=== PATIENT | female | born 1990 | race Caucasian/White ===

== ENCOUNTER 2016-10-15 09:39 | Outpatient (CLI) | payer MEDICAID ==
[~2016-10-15] VITALS: Ht 152.4 cm; Wt 68.2 kg
[2016-10-15 09:45] VITALS: Ht 152.4 cm; Wt 68.2 kg
--- NOTE | 2016-10-15 10:40 | RADRPT ---
PROCEDURE: US OB biophysical profile. CLINICAL INDICATION: evaluation TECHNIQUE: Multiple sonographic images of the pelvis were obtained. The images were reviewed on a PACS workstation. COMPARISON: No prior studies are available for comparison. FINDINGS: There is a single viable intrauterine gestation. Cardiac activity is present with 148 beats per min jessi. There is a vertex presentation. The placenta is anterior. There is no evidence of placental abruption. There is a normal amount of amniotic fluid with an ALEC = 14.7 cm. Biophysical profile: movement 2/2 tone 2/2. breathing 2/2 ALEC 2/2 Total 01/21 RPTAT: AA . IMPRESSION: Normal biophysical profile. Physician Elvi Date Time Electronically viewed and signed by Physician Elvi on 10/15/2016 10:40 /
[2016-10-15 11:29] LABS: ADD SCAN DIFF NO
[2016-10-15 11:38] LABS: BASOPHILS % 0.4 % (0.0-2.0); EOSINOPHILS # 0.1 10^3/ul (0.0-0.5); EOSINOPHILS % 1.8 % (0.0-7.0); HEMATOCRIT 30.7 % (37.0-47.0); LYMPHOCYTES # 2.6 10^3/ul (0.8-2.9); LYMPHOCYTES % 33.3 % (15.0-51.0); MEAN CORPUSCULAR HEMOGLOBIN 28.7 pg (29.0-33.0); MEAN CORPUSCULAR HGB CONC 32.6 g/dl (32.0-37.0); MEAN CORPUSCULAR VOLUME 88.2 fl (82.0-101.0); MONOCYTE # 0.6 10^3/ul (0.3-0.9); MONOCYTES % 7.2 % (0.0-11.0); NEUTROPHIL # 4.4 10^3/ul (1.6-7.5); NEUTROPHILS % 56.8 % (39.0-77.0); PLATELET COUNT 290 10^3/UL (140-415); RED BLOOD COUNT 3.48 10^6/ul (4.20-5.40); RED CELL DISTRIBUTION WIDTH 13.5 % (11.5-14.5); WHITE BLOOD COUNT 7.7 10^3/ul (4.8-10.8)
[2016-10-15 11:51] LABS: ALBUMIN 3.3 g/dl (3.3-4.9); ALBUMIN/GLOBULIN RATIO 1.03; BILIRUBIN,INDIRECT 0.1 mg/dl (0-1.1); BILIRUBIN,TOTAL 0.1 mg/dl (0.2-1.3); CALCIUM 8.9 mg/dl (8.4-10.2); CREATININE 0.46 mg/dl (0.44-1.00); POTASSIUM 3.9 mmol/L (3.5-5.1); TOTAL PROTEIN 6.5 g/dl (6.1-8.1)
[2016-10-15 11:54] LABS: ADD UMIC YES; UR BILIRUBIN (Dip) NEGATIVE (NEGATIVE); UR BLOOD (Dip) TRACE (NEGATIVE); UR CLARITY CLEAR (CLEAR); UR COLOR LT. YELLOW (YELLOW); UR GLUCOSE (Dip) NEGATIVE (NEGATIVE); UR KETONES (Dip) NEGATIVE (NEGATIVE); UR LEUKOCYTE ESTERASE (Dip) NEGATIVE (NEGATIVE); UR NITRITE (Dip) NEGATIVE (NEGATIVE); UR TOTAL PROTEIN (Dip) NEGATIVE (NEGATIVE); UR UROBILINOGEN (Dip) 0.2 E.U./dL (0.1-1.0)
[2016-10-15 12:18] LABS: UR BACTERIA OCCASIONAL; UR SQUAMOUS EPITHELIAL CELL MODERATE; URINE RBCS 0-2 /HPF (0)
[2016-10-21 19:08] LABS: CHENODEOXYCHOLIC ACID <0.5 umol/L (< OR = 3.1); CHOLIC ACID <0.5 umol/L (< OR = 1.8); DEOXYCHOLIC ACID <0.5 umol/L (< OR = 2.4); TOTAL BILE ACIDS <1.5 umol/L (< OR = 6.8)
== END 2016-10-15 12:50 | disposition home or self-care (01) ==
LOC: OBT 09:39 → L-D 09:40 → OBT 12:50
PROVIDERS: ATTEND Obstetrics & Gynecology
DX: O26.893 Other specified pregnancy related conditions, third trimester (principal); L29.9 Pruritus, unspecified; Z3A.29 29 weeks gestation of pregnancy
CPT/HCPCS: 76818; 80053; 81001; 83789; 85025; Z7500; 81003; G0463

== ENCOUNTER 2016-12-09 05:55 | Inpatient (IN) | payer MEDICAID ==
[~2016-12-09] VITALS: Ht 152.4 cm; Wt 70.3 kg
[2016-12-09 06:10] VITALS: BP 127/77; PULSE 92; RESP 18
[2016-12-09] MEDS ORDERED: FERR134T PO (06:13)
[2016-12-09] MEDS ORDERED: CALC600T5 PO (06:13)
[2016-12-09] MEDS ORDERED: PRENAT PO (06:13)
--- NOTE | 2016-12-09 06:48 | HP ---
Date/Time of Note Date/Time of Note DATE: 12/09/16 TIME: 06:46 OB - History Hx of Present Free Text/Dictation with IUP at 38 weeks reports with UCs and bloody show Care: Good Care Ultrasounds: Normal mid trimester US Obstetrical Complications: None Medical Complications: None Past Family/Social History * Past Medical, Surgical, Family and Obstetric Histories reviewed from chart. OB Admission Exam Vital Signs Vital Signs Vital Signs Date Time Temp Pulse Resp B/P Pulse Ox O2 Delivery O2 Flow Rate FiO2 12/09/16 06:10 97.9 92 18 127/77 Room Air Physical Exam HEENT: WNL Heart: Rhythm Normal Lungs: Clear, Equal Abdomen: WNL Extremities: Normal Reflexes: Normal Cervical Dilatation: 3cm Effacement: 50% OB Assessment/Plan Reason for admission: other (Early labor) Plan: Expectant Management MARY DYER MD Dec 09, 2016 06:48
[2016-12-09] MEDS ORDERED: AMPICILLIN 2 GM/NS (PMX) 100 ML IV ONE (07:00)
[2016-12-09] MEDS ORDERED: MISOPROSTOL 200 MCG TAB PR PRN ×2 (07:00→20:30)
[2016-12-09] MEDS ORDERED: BUTORPHANOL 2 MG INJ IV PRN (07:00)
[2016-12-09] MEDS ORDERED: OXYTOCIN 30 UNITS/LR 500 ML IV PRN ×2 (07:00→20:30)
[2016-12-09] MEDS ORDERED: IBUPROFEN 600 MG TAB PO PRN (07:00)
[2016-12-09] MEDS ORDERED: LIDOCAINE 1% (MPF) 30 ML INJ INJ PRN (07:00)
[2016-12-09] MEDS ORDERED: CARBOPROST 250 MCG INJ IM PRN ×2 (07:00→20:30)
[2016-12-09] MEDS ORDERED: OXYTOCIN 30 UNITS/LR 500 ML IV SCH (07:00)
[2016-12-09] MEDS ORDERED: METHYLERGONOVINE 0.2 MG INJ IM PRN ×2 (07:00→20:30)
--- NOTE | 2016-12-09 07:37 | TRIAGE ---
OB Triage Datetime Report Generated by CPN: 12/09/2016 07:37 Datetime: 12/09/2016 07:32 Arrived By: Ambulatory Datetime: 12/09/2016 07:11 Monitor Mode: External Quality: Moderate Pattern: Normal: <= 5 Contractions in 10 Minutes Resting Tone [place]: Relaxed Heart Rate FHR Baseline Rate: 140 Monitor Mode: External US FHR Baseline Changes: No Baseline Change Variability: Moderate 6-25 bpm Accelerations: 15X15 Decelerations: None Category: Category I Datetime: 12/09/2016 06:28 Stage of : OB Triage Datetime: 12/09/2016 06:19 Stage of : OB Triage Labor Evaluation Frequency: 5-8 Monitor Mode: External Duration (sec)2399: 60-80 Quality: Moderate Pattern: Normal: <= 5 Contractions in 10 Minutes Resting Tone [place]: Relaxed Heart Rate FHR Baseline Rate: 140 Monitor Mode: External US FHR Baseline Changes: No Baseline Change Variability: Moderate 6-25 bpm Accelerations: 15X15 Decelerations: Variable Category: Category II Vaginal Exam Dilatation (cms): 3.0 Effacement (%): 70 Station: -2 Exam By: Kari Vo Membrane Status: Intact Vaginal Bleeding: Normal Show Cervix, Consistency: Soft Cervix, Position: Posterior Presentation 'A': Cephalic Datetime: 12/09/2016 06:02 Stage of : OB Triage Maternal Assessment Level of Consciousness: Fully Conscious Headache: Denies Blurred Vision: No Nausea/Vomiting: Denies RUQ Epigastric Pain: Denies Facial Edema: None Monitor Mode: External Resting Tone [place]: Relaxed Monitor Mode: External US Comments: FHT 135 Datetime: 12/09/2016 06:00 Time of Arrival: 12/09/2016 05:50 EGA: 38.4 Arrived By: Wheelchair Arrived From: Home Chief Complaint: c/o ucs and bleeding Movement: Present Contractions: Regular Time Contractions Began: 12/09/2016 01:00 Contractions: q5 Rupture of Membranes: Denies Vaginal Bleeding: Normal Show Vaginal Discharge: Present Recent Sexual Intercouse: Denies Abdominal Trauma: Not Applicable Patient Complaints: Contractions Time Provider Notified: 12/09/2016 06:25 Provider Notified: Dr Cruz Initial Plan: EFM, SVE Datetime: 10/15/2016 10:10 Labor Evaluation Frequency: 0 Monitor Mode: External Heart Rate FHR Baseline Rate: 135 Monitor Mode: External US FHR Baseline Changes: No Baseline Change Variability: Moderate 6-25 bpm Accelerations: 15X15 Decelerations: None Category: Category I Pain Assessment Pain Presence: None/Denies Datetime: 10/15/2016 09:48 Time of Arrival: 10/15/2016 09:30 EGA: 30.5 Arrived By: Ambulatory Arrived From: Home Chief Complaint: ITCHING Movement: Present Contractions: Denies/Absent Rupture of Membranes: Denies Vaginal Bleeding: None Vaginal Discharge: Denies Recent Sexual Intercouse: Denies Abdominal Trauma: Not Applicable Patient Complaints: None Time Provider Notified: 10/15/2016 10:07 Provider Notified: SAPPHIRE Initial Plan: BPP, NST, CBC, CMP, BILE ACID Datetime: 10/15/2016 09:47 Time of Arrival: 10/15/2016 09:30 Arrived By: Ambulatory Arrived From: Home Chief Complaint: ITCHING FOR 3 WKS Movement: Present Contractions: Denies/Absent Rupture of Membranes: Denies Vaginal Bleeding: None Vaginal Discharge: Denies Recent Sexual Intercouse: Denies Abdominal Trauma: Not Applicable Patient Complaints: Other Datetime: 10/15/2016 09:41 Stage of : OB Triage Maternal Assessment Level of Consciousness: Fully Conscious DTR's/Clonus: DTRs 2+; No Clonus Headache: Denies Blurred Vision: No Respiratory Effort: Unlabored; Regular Rhythm; Equal Expansion Breath Sounds, Left: Clear and Equal Breath Sounds, Right: Clear and Equal Nausea/Vomiting: Denies RUQ Epigastric Pain: Denies Lower Extremities Edema: None Degree: None Upper Extremities Edema: None Degree: None Facial Edema: None Temperature Route: Axillary Fall Risk Assessment History of Falling: (0) No Secondary Diagnosis: (0) No Ambulatory Aid: (0) Bedrest/Nurse Assist IV Therapy: (0) No Gait: (0) Normal/Bedrest/Immobile Mental Status: (0) Oriented to Own Ability Fall Score: 0 Fall Risk Score Definition: No Risk: No action required Datetime: 10/15/2016 09:30 Stage of : OB Triage Assessment Type: Triage
[2016-12-09] MEDS: LACTATED RINGER'S 1,000 ML IV SCH ×2 (07:44→14:03)
[2016-12-09] MEDS ORDERED: LACTATED RINGER'S 1,000 ML IV PRN (08:00)
[2016-12-09 08:01] LABS: ADD SCAN DIFF NO
[2016-12-09 08:09] LABS: BASOPHILS % 0.3 % (0.0-2.0); EOSINOPHILS # 0.1 10^3/ul (0.0-0.5); HEMOGLOBIN 11.1 g/dl (12.0-16.0); LYMPHOCYTES # 2.1 10^3/ul (0.8-2.9); LYMPHOCYTES % 21.5 % (15.0-51.0); MEAN CORPUSCULAR HEMOGLOBIN 28.5 pg (29.0-33.0); MEAN CORPUSCULAR HGB CONC 32.6 g/dl (32.0-37.0); MEAN CORPUSCULAR VOLUME 87.4 fl (82.0-101.0); MEAN PLATELET VOLUME 10.1 fl (7.4-10.4); MONOCYTE # 0.7 10^3/ul (0.3-0.9); MONOCYTES % 7.2 % (0.0-11.0); NEUTROPHIL # 6.8 10^3/ul (1.6-7.5); NEUTROPHILS % 69.5 % (39.0-77.0); PLATELET COUNT 255 10^3/UL (140-415); RED BLOOD COUNT 3.89 10^6/ul (4.20-5.40); RED CELL DISTRIBUTION WIDTH 15.9 % (11.5-14.5); WHITE BLOOD COUNT 9.8 10^3/ul (4.8-10.8)
[2016-12-09 08:34] LABS: INR 0.93; PROTIME 12.5 Sec (12.2-14.2)
[2016-12-09 08:35] LABS: PARTIAL THROMBOPLASTIN TIME 29.7 Sec (25.0-35.0)
[2016-12-09] MEDS ORDERED: FENTAnyl 2MCG/ML-ROPIV 0.2% 100 ML ONE (09:04)
[2016-12-09 10:18] LABS: BARBITURATES Negative (NEGATIVE); BENZODIAZEPINES Negative (NEGATIVE); CANNABINOIDS Negative (NEGATIVE); COCAINE Negative (NEGATIVE); OPIATES Negative (NEGATIVE)
[2016-12-09] MEDS ORDERED: AMPICILLIN 1 GM/NS (PMX) 50 ML IV SCH (11:00)
[2016-12-09] MEDS ORDERED: NALOXONE (0.4 MG/ML) INJ IV PRN (12:00)
[2016-12-09] MEDS ORDERED: ONDANSETRON 4 MG INJ IV PRN (12:00)
[2016-12-09] MEDS ORDERED: FENTAnyl 2MCG/ML-ROPIV 0.2% 100 ML BAG EPI SCH (12:00)
[2016-12-09] MEDS ORDERED: DIPHENHYDRAMINE 50 MG INJ IV PRN (12:00)
[2016-12-09] MEDS ORDERED: MINERAL OIL LIGHT 10 ML VIAL TOP ONE (12:30)
--- NOTE | 2016-12-09 18:38 | LDN ---
Date/Time of Note Date/Time of Note DATE: 12/09/16 TIME: 18:35 Delivery Summary of a viable infant over intact perineum Weeks of Gestation 38+ Placenta Delivered: Spontaneously, Intact & Complete Meconium: Particulate Episiotomy: No Perineal laceration: 0 Anesthesia type: Epidural Estimated blood loss: 300 Sponge & Needle done & correct: Yes All needle counts correct: Yes Any foreign bodies felt in the: No Problems: Infant Delivery Information Sex Infant Sex: male Apgars 1 Minute: 9 5 Minute: 9 Suctioning Nose & mouth suctioned at mere: Yes Delee suction performed: No Umbilical Cord Umbilical cord with: 3 Vessels Cord presentations: no nuchal cord Cord Blood was obtained: Yes Mother & Baby Disposition Disposition Mom & Baby to Maternity; Good: Yes (mother and baby were recovered ingood condition ) Mom transferred to: Other (maternity) Baby to NICU: No CATRACHO NORTON MD Dec 09, 2016 18:38
[2016-12-09] MEDS: OXYTOCIN 30 UNITS/LR 500 ML IV SCH ×2 (18:53→18:54)
[2016-12-09 20:15] VITALS: BP 118/59; PULSE 67; RESP 18
[2016-12-09] MEDS ORDERED: ACETAMINOPHEN/CODEINE #3 TAB PO PRN ×2 (20:30)
[2016-12-09] MEDS ORDERED: LANOLIN 7 GM TUBE TOP PRN (20:30)
[2016-12-09] MEDS ORDERED: BENZOCAINE 20% 56 ML SPRAY TOP PRN (20:30)
[2016-12-09] MEDS ORDERED: DIBUCAINE 1% 30 GM OINT PR PRN (20:30)
[2016-12-09] MEDS ORDERED: ZOLPIDEM 5 MG TAB PO PRN (20:30)
[2016-12-09] MEDS ORDERED: WITCH HAZEL/GLYCERIN PAD PR PRN (20:30)
[2016-12-09] MEDS: MAGNESIUM HYDROXIDE 30ML CUP PO SCH (21:08)
[2016-12-09] MEDS: SENNA/DOCUSATE NA (8.6MG/50MG) TAB PO SCH (21:08)
[2016-12-09] MEDS: LACTATED RINGER'S 1,000 ML IV* SCH (22:24)
[2016-12-09] MEDS: IBUPROFEN 600 MG TAB PO SCH (23:59)
[2016-12-09] MEDS: CEPHALEXIN 500 MG CAP PO SCH (23:59)
[2016-12-10 00:30] VITALS: BP 113/58; PULSE 87; RESP 18
[2016-12-10 03:45] VITALS: BP 110/54; PULSE 65; RESP 18
[2016-12-10] MEDS: LACTATED RINGER'S 1,000 ML IV* SCH ×3 (04:06→20:06)
[2016-12-10] MEDS: IBUPROFEN 600 MG TAB PO SCH ×4 (05:29→23:44)
[2016-12-10] MEDS: CEPHALEXIN 500 MG CAP PO SCH ×4 (05:29→23:45)
[2016-12-10 07:45] LABS: ADD SCAN DIFF NO
[2016-12-10 07:54] LABS: BASOPHIL # 0.1 10^3/ul (0.0-0.1); BASOPHILS % 0.5 % (0.0-2.0); EOSINOPHILS # 0.2 10^3/ul (0.0-0.5); EOSINOPHILS % 1.5 % (0.0-7.0); HEMATOCRIT 31.5 % (37.0-47.0); HEMOGLOBIN 10.2 g/dl (12.0-16.0); LYMPHOCYTES # 2.8 10^3/ul (0.8-2.9); LYMPHOCYTES % 27.9 % (15.0-51.0); MEAN CORPUSCULAR HEMOGLOBIN 28.6 pg (29.0-33.0); MEAN CORPUSCULAR HGB CONC 32.4 g/dl (32.0-37.0); MEAN CORPUSCULAR VOLUME 88.2 fl (82.0-101.0); MEAN PLATELET VOLUME 10.1 fl (7.4-10.4); MONOCYTE # 0.9 10^3/ul (0.3-0.9); MONOCYTES % 8.7 % (0.0-11.0); NEUTROPHILS % 61.1 % (39.0-77.0); PLATELET COUNT 230 10^3/UL (140-415); RED BLOOD COUNT 3.57 10^6/ul (4.20-5.40); WHITE BLOOD COUNT 9.9 10^3/ul (4.8-10.8)
[2016-12-10] MEDS: MAGNESIUM HYDROXIDE 30ML CUP PO SCH ×2 (08:25→21:00)
[2016-12-10] MEDS: SENNA/DOCUSATE NA (8.6MG/50MG) TAB PO SCH ×2 (08:25→21:00)
[2016-12-10 09:03] VITALS: BP 104/53; PULSE 80; RESP 19
[2016-12-10 12:43] VITALS: BP 121/66; PULSE 69; RESP 20
--- NOTE | 2016-12-10 13:20 | DS ---
Date/Time of Note Date/Time of Note home next day DATE: 12/10/16 TIME: 13:18 Obstetrical Discharge Record Final Diagnosis Final Diagnosis: Term delivered Other Final Diagnosis S/P vaginal delivery Vaginal Delivery Obstetrical Delivery: Spontaneous Condition on Discharge Physical Assessment Last Vitals: see nurses notes Voiding: Yes Bowel Movement: Yes Breast: Soft, non-tender, Filling Fundus: Firm Abdomen and Incision: soft bs + Episiotomy: NA Calf Tenderness: No Patient Condition: Good CATRACHO NORTON MD Dec 10, 2016 13:19
[2016-12-10 15:38] VITALS: BP 113/58; RESP 20
--- NOTE | 2016-12-10 19:26 | PD.PPDC ---
[employer] Discharge Instruction Provider Information Physician Information 26 y/o female had vaginal delivery Condition Patient Condition: Good Diet Diet: Resume Regular Diet Activity/Restrictions Activity: Normal Activity May Shower Restrictions: Nothing in the Vagina Return to Work or School: Jan 27, 2017 Follow-up Follow-up with Physician: 4, Week/Weeks (in clinic ) Return to clinic for OB Instructions: Breast Tenderness Depression CATRACHO NORTON MD Dec 10, 2016 19:26
[2016-12-10] MEDS ORDERED: IBUP-1542 PO (19:27)
[2016-12-10 20:00] VITALS: BP 116/57; PULSE 67; RESP 67
[2016-12-11 04:05] VITALS: BP 120/62; PULSE 70; RESP 20
[2016-12-11] MEDS: LACTATED RINGER'S 1,000 ML IV* SCH (04:06)
[2016-12-11] MEDS: CEPHALEXIN 500 MG CAP PO SCH ×2 (05:27→12:21)
[2016-12-11] MEDS: IBUPROFEN 600 MG TAB PO SCH ×2 (05:27→12:21)
[2016-12-11] MEDS ORDERED: MEASLES,MUMPS,RUBELLA VACCINE INJ SC* ONE (09:00)
[2016-12-11] MEDS ORDERED: DIPHTH/TET/ACEL PERTUSS (ADULT) 0.5 ML VIAL IM* ONE (09:00)
[2016-12-11] MEDS ORDERED: VARICELLA VACCINE LIVE/PF 1,350 UNIT/0.5 ML ML SC* ONE (09:00)
[2016-12-11] MEDS: SENNA/DOCUSATE NA (8.6MG/50MG) TAB PO SCH (09:05)
[2016-12-11] MEDS: MAGNESIUM HYDROXIDE 30ML CUP PO SCH (09:05)
[2016-12-11 09:41] VITALS: BP 99/58; PULSE 61; RESP 20
== END 2016-12-11 13:41 | disposition home or self-care (01) | DRG 775 ==
LOC: L-D 05:55 → OBT 05:55 → L-D 06:28 → PP1 20:17
PROVIDERS: ADMIT Obstetrics & Gynecology; ATTEND Obstetrics & Gynecology
PROC: 10E0XZZ Delivery of Products of Conception, External Approach (ICD-10-PCS; principal; 2016-12-09)
DX: O80 Encounter for full-term uncomplicated delivery (principal); Z37.0 Single live birth; Z3A.38 38 weeks gestation of pregnancy
CPT/HCPCS: 62319; 80307; 85025; 85610; 85730; 86592; 86900; 86901; 87340; 90715; 90716; 99464; G0463; J2590; J3010; J7120